=== PATIENT | female | born 1960 | race American Indian/Alaskan Native ===

== ENCOUNTER 2017-05-14 09:55 | Day surgery (SDC) | payer MEDICARE ==
[2017-05-14] MEDS ORDERED: NACL BACTERIOSTATIC INFILTRATI ONE (11:02)
--- NOTE | 2017-05-14 11:18 | Anesthesia Day of Surgery ---
Anesthesia Day of Surgery - Day of Surgery Patient Examined: Yes Patient H&P Reviewed: Yes Patient is NPO: Yes
[2017-05-14] MEDS ORDERED: ZOFRAN IV PRN (11:21)
--- NOTE | 2017-05-14 11:21 | Anesthesia Consultation ---
Anesthesia Consult and Med Hx Date of service: 05/14/17 - Airway Anesthetic Teeth Evaluation: Good ROM Head & Neck: Adequate Mental/Hyoid Distance: Adequate Mallampati Class: Class I Intubation Access Assessment: Probably Good - Pulmonary Exam CTA: Yes - Cardiac Exam Cardiac Exam: RRR - Pre-Operative Health Status ASA Pre-Surgery Classification: ASA4 Proposed Anesthetic Plan: General - Pulmonary Hx Smoking: No Hx Sleep Apnea: No (DANIELA PRE SCREEN LOW RISK) - Cardiovascular System Hx Hypertension: Yes (NICM, EF 25-30%.) Hx Pacemaker: Yes (2013) Hx Internal Defibrillator: Yes (2013. BiVICD.) - Endocrine Hx Non-Insulin Dependent Diabetes: Yes - Hematic Hx Anemia: Yes (02/2017) - Other Systems Hx Cancer: No - Additional Comments Anesthesia Medical History Comments: RA. 1FOS, limited because of knee. No CP or SOB
[2017-05-14] MEDS ORDERED: VERSED ONE (11:49)
[2017-05-14] MEDS ORDERED: DIPRIVAN 10 MG/ML IV ONE (11:50)
[2017-05-14] MEDS ORDERED: NACL 0.9% 1000 ML 1,000 ML IV SCH ×2 (12:00)
[2017-05-14] MEDS ORDERED: MORPHINE ONE (12:01)
[2017-05-14] MEDS ORDERED: XYLOCAINE MPF 2% ONE (12:14)
[2017-05-14] MEDS ORDERED: ZOFRAN ONE (12:15)
--- NOTE | 2017-05-14 12:21 | Short Stay Summary ---
Short Stay Documentation Date of service: 05/14/17 - Allergies and Medications Current Medications: Allergies lisinopril Allergy (Intermediate, Verified 05/14/17 11:01) Rash promethazine HCl [From Phenergan] Allergy (Mild, Verified 05/14/17 11:01) Unknown carvedilol [From Coreg] Allergy (Unknown, Verified 05/14/17 11:01) Unknown fentanyl Allergy (Unknown, Verified 05/14/17 11:01) Unknown hydromorphone HCl [From Dilaudid] Allergy (Unknown, Verified 05/14/17 11:01) Unknown Home Medications Medication Instructions Recorded Confirmed Last Taken Type Cholecalciferol Vit D3 [Vitamin D3] 400 unit PO QDAY 05/08/17 05/08/17 05/13/17 History Folic Acid [Folvite] 1 mg PO QDAY 05/08/17 05/08/17 05/14/17 08:00 History Furosemide [Lasix] 20 mg PO PRN PRN 05/08/17 05/08/17 05/13/17 History Hydroxychloroquine [Plaquenil] 200 mg PO QDAY 05/08/17 05/08/17 05/13/17 History Losartan [Cozaar] 25 mg PO QDAY 05/08/17 05/08/17 05/14/17 08:00 History Methotrexate Sodium [Trexall] 10 mg PO QWEEK 05/08/17 05/08/17 05/13/17 History Metoprolol [Lopressor TAB] 50 mg PO DAILY 05/08/17 05/08/17 05/14/17 08:00 History Sitagliptin Phosphate [Januvia] 25 mg PO 3XW 05/08/17 05/08/17 05/13/17 History Spironolactone [Aldactone] 25 mg PO DAILY 05/08/17 05/08/17 05/14/17 08:00 History Vitamin B6 1 tab PO DAILY 05/08/17 05/08/17 05/13/17 History Vitamin E 1,000 unit PO DAILY 05/08/17 05/08/17 05/13/17 History Active Medications Sodium Chloride (Nacl 0.9% 1000 Ml) 1,000 mls @ 42 mls/hr IV DIRECT SAMANTHA Last Admin: 05/14/17 11:32 Dose: 42 mls/hr Sodium Chloride (Nacl 0.9% 1000 Ml) 1,000 mls @ 42 mls/hr IV DIRECT SAMANTHA Morphine Sulfate (Morphine) 2 mg IV Q10MIN PRN PRN Reason: Pain, Moderate (4-6) Stop: 05/17/17 11:22 Short Stay Discharge Plan Activity: no restrictions, advance as tolerated, fall precautions Weight Bearing Status: Full Weight Bearing Diet: regular (diet she was on before, continue that as tolerated), other Additional Instructions: start CPM full ROM today at home atleast 8 hours a day. She needs to do PT straight for 10-14 days and then 3-4 times a week for 6 -8 weeks, ROM exercices at home, Ice pacs right knee, Work on knee extension and flexion on daily basis Few times a day..as explained. pain meds PRN fOLLOW UP IN A WEEK WITH Follow up with: DENIA CRUZ [Other] - 7 Days
[2017-05-14] MEDS: MORPHINE IV PRN ×2 (12:30→12:50)
[2017-05-14] MEDS ORDERED: TORADOL ONE (13:00)
[2017-05-14] MEDS ORDERED: ZOFRAN IV ONE (13:10)
--- NOTE | 2017-05-14 13:10 | Post Anesthesia Evaluation ---
- Post Anesthesia Evaluation Patient Participated: Yes Airway Patent: Yes Stable Respiratory Function: Yes Nausea/Vomiting: No Temp > 96.8F: Yes Pain Manageable: Yes Adequeate Hydration: Yes Anesthesia Complications: No
--- NOTE | 2017-05-14 13:56 | XRay Report ---
RIGHT KNEE, 2 VIEWS History: Right knee manipulation. Findings: Frontal and lateral fluoroscopic images of the right knee were obtained. Right knee replacement has been previously performed. The hardware appears well applied. No evidence for fracture, malalignment or bone lesion. Impression: Stable appearance of the right knee arthroplasty.
[2017-05-14 14:44] VITALS: BP 118/60
--- NOTE | 2017-05-14 16:22 | Operative Report ---
PREOPERATIVE DIAGNOSIS: Arthrofibrosis of right knee joint, status post total knee replacement. POSTOPERATIVE DIAGNOSIS: Arthrofibrosis of right knee joint, status post total knee replacement. PROCEDURES PERFORMED: Manipulation of the right knee joint under anesthesia. ANESTHESIA: Sedation local MAC with muscle relaxation as per anesthesia. COMPLICATIONS: None. BRIEF HISTORY: The patient had osteoarthritis of the knee, failed conservative treatment, opted to go for surgical intervention, total knee replacement performed, ended up having some arthrofibrosis in her knee and opted to go for manipulation of the right knee under anesthesia. Risks and benefits discussed, informed consent obtained, brought to the hospital for the above procedure. DETAILS OF THE PROCEDURE: The patient was taken to the operating room, laid supine on the operating table. All the bony prominences were carefully padded. After smooth anesthesia, right knee was gradually bent in a controlled fashion. The scar tissue was felt and heard to be gradually giving away. The arm was placed around the thigh and the leg was placed in the right armpit in a controlled fashion. The right leg and knee was bent in a gradual fashion to allow the increased bending. Preoperatively, the range of motion was from 10 degrees lack of full extension to about 90 degree flexion. After manipulation, we had full extension about degree flexion at least. Pictures were taken before and after. The patella was mobilized pretty good. After the procedure, we could easily feel that the scar tissue had broken. Intraoperative fluoroscopy was also performed and the pictures were taken. No fracture or any complication noticed, no increased swelling in the knee, no bruise. Ice packs applied. The patient tolerated the procedure well, shifted to recovery room in stable condition. JOB# [id number] KAREN/LIZZ
== END 2017-05-14 14:10 | disposition home or self-care (01) ==
LOC: OR 09:55
PROVIDERS: ATTEND Orthopaedic Surgery
DX: M24.661 Ankylosis, right knee (principal); I10 Essential (primary) hypertension; E11.9 Type 2 diabetes mellitus without complications; Z95.0 Presence of cardiac pacemaker; Z98.890 Other specified postprocedural states; Z96.651 Presence of right artificial knee joint; Z88.8 Allergy status to other drugs, medicaments and biological substances
CPT/HCPCS: 27570; 36415; 73560; 82962; 84132; J1885; J2250; J2270; J2405; J2704; J7030